=== PATIENT | male | born 1990 | race African-American/Black ===

== ENCOUNTER 2024-06-22 21:02 | Emergency (ER) | payer OTHER ==
[~2024-06-22] VITALS: Ht 180.3 cm; Wt 79.5 kg
[2024-06-22] MEDS: HYDROCODONE/ACETAMINOPHEN 5-325 MG TABLET PO ONE (22:00)
[2024-06-22] MEDS: IBUPROFEN 600 MG TABLET PO ONE (22:00)
[2024-06-23] MEDS: LIDOCAINE 1% 10 ML VIAL SQ ONE (01:11)
[2024-06-23] MEDS: BACITRACIN 0.9 GM PACKET OINTMENT TP ONE (01:12)
[2024-06-23 01:33] VITALS: BP 129/77; PULSE 65; RESP 18; TEMP 97.3; O2SAT 100
== END 2024-06-23 01:57 ==
LOC: EMS 21:02
DX: S01.01XA Laceration without foreign body of scalp, initial encounter (principal); S06.0XAA Concussion with loss of consciousness status unknown, initial encounter; S60.222A Contusion of left hand, initial encounter; S60.221A Contusion of right hand, initial encounter; Y04.0XXA Assault by unarmed brawl or fight, initial encounter; Y93.89 Activity, other specified; Y92.89 Other specified places as the place of occurrence of the external cause; Y99.8 Other external cause status
CPT/HCPCS: 99284; 70450; 73130 ×2; 72125; 12002; J3490; 99282